=== PATIENT | male | born 1970 | race Caucasian/White ===

== ENCOUNTER 2017-05-03 19:20 | Emergency (ER) | payer OTHER ==
[~2017-05-03] VITALS: Ht 177.8 cm; Wt 95.0 kg
[2017-05-03 19:21] VITALS: BP 142/88; PULSE 76; RESP 16; TEMP 98.7; O2SAT 97
--- NOTE | 2017-05-03 21:27 | PD ---
HPI Chief Complaint: Injury Time Seen by Provider: 21:07 Travel History International Travel<30 days: No Contact w/Intl Traveler<30days: No Traveled to known affect area: No History of Present Illness HPI 47-year-old male presents today after drilling his left hand with a drill bit. Patient states he was drilling a lock when the drill bit broke and it distended into his left hand at the proximal portion of his thumb. He reports pain at the drill site. He also reports inability to extend his thumb up. He states he can flex it but is unable to raise his thumb up. There are no other injuries. He is unsure of his last tetanus immunization. FOR[facility]LY [facility] Past Medical History Medical History: Denies Significant Hx Diminished Hearing: No Social History Alcohol Use: Yes (3-4 TIMES PER DAY ) Tobacco Use: No Substance Use: No Allergies-Medications (Allergen,Severity, Reaction): Coded Allergies: No Known Allergies (Unverified , 05/03/17) Reported Meds & Prescriptions Reported Meds & Active Scripts Active Keflex (Cephalexin) 500 Mg Capsule 500 Mg PO QID Review of Systems Except as stated in HPI: all other systems reviewed are Neg Musculoskeletal: Positive: Weakness, Pain (left thumb.), Other (inability to extend thumb on left hand.) Neurologic: No: Sensory Disturbance (no sensory disturbance of distal thumb.) Physical Exam Narrative GENERAL: Well-nourished, well-developed patient in no acute distress.. SKIN: Focused skin assessment warm/dry. HEAD: Normocephalic/atraumatic. EYES: No scleral icterus. No injection or drainage. MUSCULOSKELETAL: On examination patient's left hand, there is a punctate drill injury to the left dorsum of his MCP distribution. He has normal sensation to his distal finger with 2 point dissemination. He is able to flex his thumb however he is unable to extend his thumb. Concern is for an extensor tendon injury. The rest of his hand is within normal limits. NEUROLOGICAL: Awake and alert. Cranial nerves II through XII intact. Motor and sensory grossly within normal limits. Five out of 5 muscle strength in all muscle groups. Normal speech. Data Data Last Documented VS Vital Signs Date Time Temp Pulse Resp B/P Pulse Ox O2 Delivery O2 Flow Rate FiO2 05/03/17 21:06 16 05/03/17 19:21 98.7 76 142/88 97 Room Air Orders Hand, Complete ([id number]) (05/03/17 21:11) Tetanus/Diphtheria Tox Adult (Tetanus/Di (05/03/17 21:30) Cephalexin (Keflex) (05/03/17 22:15) Ibuprofen (Motrin) (05/03/17 22:15) MDM Medical Decision Making Medical Screen Exam Complete: Yes Emergency Medical Condition: Yes Differential Diagnosis Left thumb extensor tendon injury versus bony injury versus nerve injury Narrative Course 47-year-old male presents after having a broken drill bit punctured his left dorsum of his hand. He has a puncture wound at the MCP joint. There appears to be a next stents or tendon injury. X-ray shows no evidence of acute bony injury. I do not feel as though there is joint involvement at this time. The case was discussed with Dr. Dudley, hand surgeon who recommended we wash it out, start him on antibiotics and he will see him in the office tomorrow. The patient will be given Dr. Velez's office number. He is instructed to call tomorrow morning. He has been immunized for tetanus. Diagnosis Primary Impression: suspected left thumb extensor tendon injury Additional Impression: puncture wound to the left dorsum of the thumb Referrals: Alex Hernandez MD Additional Instructions: Call Dr. De La Cruz tomorrow for appointment for tomorrow. Med/Other Pt SpecificInfo: Prescription(s) given Scripts Cephalexin (Keflex)500 Mg [id number] Mg PO QID #28 CAP Ref 0 Prov:Silviano Whyte MD 05/03/17 Disposition: 01 DISCHARGE HOME Condition: Stable Silviano Whyte MD May 03, 2017 21:27
[2017-05-03] MEDS ORDERED: TETANUS/DIPHTHERIA TOXOID ADULT 0.5 ML VIAL IM ONE (21:30)
--- NOTE | 2017-05-03 21:36 | RADRPT ---
EXAM DATE/TIME: 05/03/2017 21:10 [place] COMPARISON: No previous studies available for comparison. INDICATIONS : Left hand thumb pain and puncture wound, drilled thumb. MEDICAL HISTORY : None. SURGICAL HISTORY : None. ENCOUNTER: Initial ACUITY: 1 day PAIN SCORE: 8/10 LOCATION: Left Hand FINDINGS: Three view examination of the left hand demonstrates no soft tissue swelling, dislocation, or fractur e. The carpal bones appear intact. The interphalangeal and metacarpophalangeal joints are intact. Bony mineralization is normal. There is some soft tissue gas seen about the lateral aspect of the w rist. CONCLUSION: The osseous structures of the hand are intact. Leon Quijano MD on May 03, 2017 at 21:34 Board Certified Radiologist. This report was verified electronically.
[2017-05-03] MEDS ORDERED: CEPH-460 PO (22:03)
[2017-05-03] MEDS ORDERED: IBUPROFEN 600 MG TAB PO ONE (22:15)
[2017-05-03] MEDS ORDERED: CEPHALEXIN MONOHYDRATE 500 MG CAP PO ONE (22:15)
== END 2017-05-03 22:45 | disposition home or self-care (01) ==
LOC: NEPE 19:20
DX: S61.032A Puncture wound without foreign body of left thumb without damage to nail, initial encounter (principal); X58.XXXA Exposure to other specified factors, initial encounter; W29.8XXA Contact with other powered hand tools and household machinery, initial encounter; Z23 Encounter for immunization
CPT/HCPCS: 73130; 90471; 90714

== ENCOUNTER 2017-05-05 07:30 | Day surgery (SDC) | payer OTHER ==
[~2017-05-05] VITALS: Ht 177.8 cm; Wt 95.0 kg
[~2017-05-05 07:30] MED LIST: CEPH-460 PO
[2017-05-05 08:00] VITALS: BP 136/85; PULSE 59; RESP 16; TEMP 98; O2SAT 98
[2017-05-05] MEDS ORDERED: ceFAZolin 2 GM PREMIX 50 ML ONE ×2 (08:21→09:17)
[2017-05-05] MEDS ORDERED: DEXAMETHASONE SOD PHOS 4 MG/ML VIAL ONE (08:56)
[2017-05-05] MEDS ORDERED: ACETAMINOPHEN 1000 MG/100 ML VIAL IV ONE ×2 (08:56→10:00)
[2017-05-05] MEDS ORDERED: LIDOCAINE HCL 2% 50 ML VIAL ONE (09:12)
[2017-05-05] MEDS ORDERED: BACITRACIN TOP OINT 15 GM TUBE ONE (09:13)
[2017-05-05] MEDS ORDERED: BUPIVACAINE HCL PF 0.5% 30 ML VIAL ONE (09:17)
[2017-05-05] MEDS ORDERED: DEXAMETHASONE SOD PHOS 4 MG/ML VIAL IV ONE (10:00)
--- NOTE | 2017-05-05 11:23 | PD.OP ---
Operative Report Preoperative Diagnosis: (1) Laceration of extensor muscle, fascia, and tendon of left thumb at wrist and hand level Postoperative Diagnosis: (1) Laceration of extensor muscle, fascia, and tendon of left thumb at wrist and hand level Procedure: exploration, repair extensor pollicis longus and extensor pollicis brevis left thumb/hand Anesthesia: general Surgeon: Alex Hernandez Welding Estimator(s): james Operation and Findings: puncture wound over the first metacarpal laceration extensor pollicis longus and extensor pollicis brevis Alex Hernandez MD May 05, 2017 11:23
[2017-05-05] MEDS ORDERED: *morphine SULFATE 8 MG/ML PERIprocedure ONLY ONE ×2 (11:44→11:53)
[2017-05-05] MEDS ORDERED: DO NOT ADM ANY ANTICOAGULANT DRUGS PRN (12:00)
[2017-05-05 12:15] VITALS: BP 130/89; PULSE 72; RESP 16; TEMP 98.2; O2SAT 98
[2017-05-05] MEDS ORDERED: ONDANSETRON HCL 4 MG/2 ML VIAL IV PUSH ONE (13:51)
[2017-05-05] MEDS ORDERED: PROPOFOL 200 MG/20 ML AMP IV ONE (13:51)
--- NOTE | 2017-05-05 16:09 | MP ---
cc: MEAGHAN LUJAN DATE OF SURGERY May 05, 2017 PREOPERATIVE DIAGNOSIS Laceration extensor pollicis longus tendon, left thumb. POSTOPERATIVE DIAGNOSIS Laceration extensor pollicis longus tendon and extensor pollicis brevis left thumb/hand. PROCEDURE Exploration, repair extensor pollicis longus tendon and extensor pollicis brevis tendon left thumb/hand. SURGEON Dr. Lujan ANESTHESIA General. ESTIMATED BLOOD LOSS Minimal. TOURNIQUET TIME 64 minutes at 250 mmHg. DISPOSITION The patient was recovered and sent to room in stable condition. The patient is a 47-year-old right-hand dominant male who presented with complaints of puncture wound over the left thumb following a drill bit ___. The patient was unable to extend the left thumb. On examination he had puncture wound over the first metacarpal with drooping of the MP and IP joint of the thumb. The patient was clinically diagnosed with extensor pollicis longus tendon laceration and was consented for exploration, repair of extensor tendon left thumb/hand. The patient was explained the risks and benefits of the procedure. PROCEDURE IN DETAIL The patient was brought to the operating room. Under general anesthesia the left upper extremity was thoroughly prepped and draped. Incision site was marked in a longitudinal fashion over the puncture wound over the first metacarpal region measuring about 3-4 cm. Limb was exsanguinated using Esmarch tourniquet. Tourniquet was inflated to 250 mmHg. Incision was then made over the proposed incision site. Soft tissue dissection was carried out. Sensory branches of the radial nerve was protected out of harm's way. On exploration there was complete laceration of the extensor pollicis longus tendon and extensor pollicis brevis tendon. The proximal stump of the extensor pollicis longus tendon was retracted to the wrist level. An oblique incision was made just distal to the extensor retinaculum. The extensor pollicis longus __ was identified and that region. This was then retracted into the primary laceration site. Thorough wash of the wounds were carried out. The skin edges were debrided. The tendons were held in place with hypodermic needles. The extensor pollicis brevis tendon was initially approximated using 3-0 Ethibond in cross cruciate fashion with four strands crossing the repair site. This was then reinforced with 5-0 nylon in a continuous circumferential fashion. Attention was then directed to the extensor pollicis longus tendon. The tendon edges were approximated using 3-0 Ethibond in a cross cruciate fashion with four strands crossing across the repair site. This was then reinforced using 5-0 Prolene continuous circumferential fashion. He had good tenodesis effect. The thumb was put through a range of motion. The repair site was holding in place. Thorough wash of the wounds were carried out. Skin edges were then approximated using 5-0 nylon in a horizontal mattress fashion. Xeroform, bacitracin, dressing applied. About 5 cc of local anesthesia containing mixture of 2% lidocaine and 0.5% Marcaine was injected across the incision site. Bulky hand dressing was applied which was held in place by Sof-Rol and bias hand wrap. A short-arm splint was applied keeping the wrist in extension extending to the tip of the thumb, keeping the thumb MP and IP joint in extension. Tourniquet was deflated. Total tourniquet time was 64 minutes. The patient had good distal circulation on release of tourniquet. He was recovered, sent to recovery in stable condition. He will follow up in two to three days' time for dressing and splint change. Meaghan Lujan MD SE/TAMARA /11:23 AM /3:40 PM
[2017-05-05] MEDS ORDERED: fentaNYL CITRATE 250 MCG/5 ML AMP ONE (17:34)
== END 2017-05-05 12:31 | disposition home or self-care (01) ==
LOC: HSDC 07:30
PROVIDERS: ATTEND Surgery Surgery of the Hand
DX: S66.222A Laceration of extensor muscle, fascia and tendon of left thumb at wrist and hand level, initial encounter (principal); W29.8XXA Contact with other powered hand tools and household machinery, initial encounter; Y93.H9 Activity, other involving exterior property and land maintenance, building and construction; Y99.0 Civilian activity done for income or pay
CPT/HCPCS: 01810; 26418; J0690; J1100; J2270; J2405; J3010; J0131